=== PATIENT | male | born 1950 | race Caucasian/White ===

== ENCOUNTER 2019-04-18 20:42 | Emergency (ER) | payer MEDICARE, OTHER ==
[2019-04-18] MEDS ORDERED: LORAZEPAM INJ 2 MG/1 ML VIAL IV ONE (20:48)
[2019-04-18] MEDS ORDERED: LORAZEPAM INJ 2 MG/1 ML VIAL ONE (20:49)
--- NOTE | 2019-04-18 20:58 | ER Document Report ---
ED General - General Chief Complaint: Seizure Stated Complaint: POSSIBLE SEIZURE Time Seen by Provider: 04/18/19 20:48 Primary Care Provider: MAKCENZIE AMOR MD [NO LOCAL MD] - Follow up as needed - [facility] Notes: 68-year-old male transported here by EMS with apparent new onset generalized tonic-clonic seizure which according to bystanders lasted 3 to 4 minutes. Patient postictal on arrival here. Medical history is otherwise unknown. Onset just prior to transport. Duration 3 to 4 minutes. Quality generalized tonic-clonic seizure Precipitating factors unknown Relieving factors: Spontaneous resolution. Pertinent prior history unknown. - Related Data Allergies/Adverse Reactions: No Known Allergies Allergy (Unverified 04/18/19 21:21) Past Medical History - General Information source: Emergency Med Personnel Cannot obtain history due to: Altered mental status - Social History Smoking Status: Never Smoker Family History: None Neurological Medical History: Reports: None Psychiatric Medical History: Reports: None Past Surgical History: Reports: None Review of Systems - Review of Systems -: Yes ROS unobtainable due to patient's medical condition Physical Exam - Vital signs Vitals: Temp 98.4 F 04/18/19 20:43 Notes: GENERAL: Male patient of approximately stated age appears postictal. SKIN: Generalized flushing. Good turgor no rashes. HEAD: Normocephalic atraumatic. EYES: PERRLA. Conjunctivae and sclerae clear. EARS: CANALS AND TMS CLEAR. NOSE: CLEAR. MOUTH: Moist mucosa. Good dentition. No stridor or edema. No drooling. Abrasions of tongue. NECK: Supple. No masses or thyromegaly. No adenopathy. Carotids 2+ without bruits. No JVD. BACK: Symmetrical without tenderness. CHEST: Respirations unlabored. Breath sounds clear and symmetrical. HEART: Regular rhythm. No murmur gallop or rub. ABDOMEN: Soft nontender without masses, organomegaly or rebound. Bowel sounds normally active. No bruits. GENITALIA: Deferred. EXTREMITIES: No edema. No calf tenderness. Cap refill less than 1.5 seconds. Dorsalis pedis and posterior tibial pulses 3+ and symmetrical. NEUROLOGICAL: GCS 14. Disoriented x3. Slurred speech. Cranial nerves II through XII intact. Moves all 4 extremities symmetrically. Hyperreflexic. 3 beats of ankle clonus bilaterally.. Course - Re-evaluation Re-evalutation: 04/18/19 21:49 is arrived and provided additional medical history. 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 He has a history of mild hypertension and is compliant with his regular medication lisinopril. He has had no other serious illnesses. She is unaware of any past head injuries. He has no history of using drugs or alcohol. He is felt well recently with no specific complaints. She confirms that he is never had a seizure to the best of her knowledge. Chemistry profile and CBC are normal. Head scan reported normal by the radiologist as well as CT of the C-spine and chest x-ray. Patient was given some Ativan when he arrived here because he was somewhat combative and postictal. He remains sedated at this time. We are waiting to collect a urine specimen for urinalysis and UDS. Blood alcohol was less than 10. EKG showed a normal sinus rhythm with no abnormal findings appreciated. 04/19/19 00:44 Patient is alert and oriented x3 and ambulating without assistance. Briefly this is a previously healthy man except for history of mild hypertension who had had minimal sleep in the last 24 hours and had a brief generalized tonic-clonic seizure. His work-up here was totally normal. He is going to be referred to a neurologist on an outpatient basis and will probably need further evaluation with an EEG and brain MRI. He is instructed not to drive. Seizure precautions. - Vital Signs Vital signs: Temp Pulse Resp BP Pulse Ox 98.4 F 15 116/60 97 04/18/19 20:43 04/19/19 00:01 04/19/19 00:01 04/19/19 00:01 - Laboratory Result Diagrams: 04/18/19 20:50 04/18/19 20:50 Laboratory results interpreted by me: 04/18/19 04/18/19 04/18/19 20:50 20:50 22:26 Plt Count 149 L Carbon Dioxide 19 L Anion Gap 20 H Glucose 112 H Magnesium 2.4 H Total Protein 8.4 H Urine Protein 30 H Urine Blood SMALL H - EKG Interpretation by Mo EKG shows normal: Sinus rhythm Rate: Normal Rhythm: NSR Additional EKG results interpreted by me: 04/18/19 21:51 Normal tracing Discharge - Discharge Clinical Impression: New onset seizure without head trauma Condition: Stable Disposition: HOME, SELF-CARE Additional Instructions: Seizure You have had a seizure. Seizure disorders (epilepsy) of one sort or another affect about one out of 50 people. The seizure occurs because of abnormal electrical activity in the brain. Seizures may be due to drugs and alcohol, strokes, brain injury, or infection. In the most common form of epilepsy, no cause can be found. You will require further evaluation to determine the cause of your seizure, and to determine whether anti-seizure medication is required. This follow-up testing is important, so please call us if you encounter problems with scheduling of tests or appointments. YOU SHOULD NOT DRIVE until released to do so by your physician. The law requires that seizures be reported to the armored truck driver's license bureau--a seizure while driving could be catastrophic. Call the doctor if seizures recur, or if you develop new symptoms such as fever, severe headache, stiff neck, confusion or increasing sleepiness, weakness or numbness, or visual problems. Follow-up with referral neurologist. Return here as needed for new or worsening symptoms. Forms: Return to Work Referrals: MACKENZIE AMOR MD [NO LOCAL MD] - Follow up as needed
[2019-04-18 21:11] LABS: ABSOLUTE BASOPHILS # (AUTO) 0.1 10^3/uL (0.0-0.2); ABSOLUTE EOSINOPHILS # (AUTO) 0.1 10^3/uL (0.0-0.6); ABSOLUTE LYMPHOCYTES (AUTO) 3.4 10^3/uL (0.5-4.7); ABSOLUTE MONOCYTES (AUTO) 0.6 10^3/uL (0.1-1.4); ABSOLUTE NEUT (AUTO) 3.6 10^3/uL (1.7-8.2); BASOPHILS % (AUTO) 1.1 % (0-2); EOSINOPHILS % (AUTO) 1.6 % (0-6); HEMATOCRIT 49.3 % (37.9-51.0); HEMOGLOBIN 16.6 g/dL (13.5-17.0); LYMPHOCYTES % (AUTO) 43.3 % (13-45); MEAN CORPUSCULAR HEMOGLOBIN 30.2 pg (27.0-33.4); MEAN CORPUSCULAR HGB CONC 33.8 g/dL (32.0-36.0); MEAN CORPUSCULAR VOLUME 89 fl (80-97); MONOCYTES % (AUTO) 7.3 % (3-13); PLATELET COUNT 149 10^3/uL (150-450); RED BLOOD COUNT 5.52 10^6/uL (4.35-5.55); RED CELL DISTRIBUTION WIDTH 13.8 % (11.5-14.0); SEGMENTED NEUTROPHILS % (AUTO) 46.7 % (42-78); TOTAL CELLS COUNTED % (AUTO) 100 %; WHITE BLOOD COUNT 7.8 10^3/uL (4.0-10.5)
[2019-04-18 21:27] LABS: ALKALINE PHOSPHATASE 80 U/L (38-126); ASPARTATE AMINO TRANSFERASE 32 U/L (17-59); BILIRUBIN,DIRECT 0.2 mg/dL (0.0-0.4); BILIRUBIN,TOTAL 0.8 mg/dL (0.2-1.3); BLOOD UREA NITROGEN 13 mg/dL (7-20); CALCIUM 9.5 mg/dL (8.4-10.2); GLUCOSE 112 mg/dL (75-110); TOTAL PROTEIN 8.4 g/dL (6.3-8.2)
[2019-04-18 21:32] LABS: CARBON DIOXIDE 19 mmol/L (22-30); CHLORIDE 100 mmol/L (98-107)
--- NOTE | 2019-04-18 21:33 | RADIOLOGY REPORT (SQ) ---
EXAM DESCRIPTION: CT CERVICAL SPINE WITHOUT IV CONTRAST COMPLETED DATE/TME: 04/18/2019 20:53 CLINICAL HISTORY: 68 years, Male, seizure This exam was performed according to our departmental dose-optimization program which includes automated exposure control, adjustment of the mA and/or kVp according to patient size and/or use of iterative reconstruction technique where applicable. FINDINGS: Vertebral body heights are intact. Alignment is intact. No subluxation. Mild degenerative changes at C5-6 and C6-7. No significant prevertebral soft tissue swelling. Mild degenerative changes at C1-2. Facets are normally aligned. No significant prevertebral soft tissue swelling. The odontoid process is intact. IMPRESSION: No fracture. Mild degenerative changes.
[2019-04-18 21:34] LABS: ALCOHOL < 10 mg/dL (NONE DETECTED)
--- NOTE | 2019-04-18 21:34 | RADIOLOGY REPORT (SQ) ---
EXAM DESCRIPTION: [facility]: CT HEAD WITHOUT IV CONTRAST CLINICAL HISTORY: 68 years Male; seizure TECHNIQUE: Noncontrast CT head. All CT scans at this facility use dose modulation, iterative reconstruction, and/or weight based dosing when appropriate to reduce radiation dose to as low as reasonably achievable. COMPARISON: None. FINDINGS: Day matter, white matter, ventricles, and cisterns are within normal limits. No acute hemorrhage or mass effect. Visualized portions of paranasal sinuses and mastoids are clear. Visualized portions of the calvarium are within normal limits. IMPRESSION: 1. No acute intracranial findings.
[2019-04-18 21:35] LABS: ANION GAP 20 (5-19)
--- NOTE | 2019-04-18 21:35 | RADIOLOGY REPORT (SQ) ---
EXAM DESCRIPTION: [facility]: XR CHEST 1 VIEW CLINICAL HISTORY: 68 years Male, seizure COMPARISON: None. FINDINGS: Lungs are clear, with no focal infiltrate, pneumothorax, or pleural effusion. Mediastinum is within normal limits for this positioning. Bony structures are unremarkable. IMPRESSION: 1. No acute pulmonary findings.
[2019-04-18 22:30] LABS: VENOUS BLOOD BASE EXCESS 1.5 mmol/L; VENOUS BLOOD HCO3 27.4 mmol/L (20-32); VENOUS BLOOD PCO2 47.7 mmHg (35-63); VENOUS BLOOD PH 7.38 (7.30-7.42)
[2019-04-18 22:51] LABS: APPEARANCE,URINE CLEAR; BILIRUBIN,URINE NEGATIVE (NEGATIVE); COLOR,URINE YELLOW; GLUCOSE, URINE NEGATIVE (NEGATIVE); KETONES,URINE NEGATIVE (NEGATIVE); LEUKOCYTE ESTERASE,URINE NEGATIVE (NEGATIVE); NITRITE,URINE NEGATIVE (NEGATIVE); PROTEIN,URINE 30 mg/dL (NEGATIVE); URINE SPECIFIC GRAVITY 1.013; UROBILINOGEN,URINE NEGATIVE mg/dL (<2.0)
[2019-04-18 23:00] LABS: URINE AMPHETAMINES SCREEN NEGATIVE; URINE BARBITURATES SCREEN NEGATIVE; URINE BENZODIAZEPINES SCREEN NEGATIVE; URINE COCAINE SCREEN NEGATIVE; URINE MARIJUANA (THC) SCREEN NEGATIVE; URINE METHADONE SCREEN NEGATIVE; URINE PHENCYCLIDINE SCREEN NEGATIVE
--- NOTE | 2019-04-19 00:06 | EKG REPORT ---
SEVERITY:- NORMAL ECG - SINUS RHYTHM : Confirmed by: Yesica Chester MD 19-Apr-2019 00:05:43
[2019-04-19 01:04] VITALS: BP 116/62
== END 2019-04-19 01:05 | disposition home or self-care (01) ==
LOC: ER 20:42
DX: R56.9 Unspecified convulsions (principal); R41.82 Altered mental status, unspecified
CPT/HCPCS: 93005; 99285; 96374; 36415; 80307 ×2; 83735; 85025; 80053; 81001; 82803; 71045; 70450; 72125; 93010; J2060